=== PATIENT | male | born 2005 | race Caucasian/White ===

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

== ENCOUNTER 2023-07-30 15:06 | Emergency (ER) | payer MEDICAID, SELFPAY ==
[2023-07-30 15:07] VITALS: BP 158/74; PULSE 104; RESP 16; TEMP 36.3; O2SAT 98
--- NOTE | 2023-07-30 15:11 | ED.RN ---
PER PATIENT THIS WILL NOT BE WORKERS COMP
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
--- NOTE | 2023-07-30 15:23 | RAD_ITS ---
STUDY: X-RAY - RIGHT FOOT CLINICAL: Male, 17 years old. Injury TECHNIQUE: 3 view(s) of the foot. COMPARISON: None. FINDINGS: Normal talus, calcaneus, and tarsal bones. Normal visualized subtalar, talonavicular, calcaneocuboid, tarsal and tarsometatarsal articulations. Normal metatarsi. Normal metatarsophalangeal joint of the great toe. Normal tibial and fibular sesamoid bones. Normal interphalangeal joint of the great toe. Nondisplaced fracture at the base of the distal phalanx of the great toe. Normal second through fifth metatarsophalangeal joints. Normal interphalangeal joints and phalanges of the lesser toes. Soft tissue swelling. RAD/Foot min 3 Views IMPRESSION: Soft tissue swelling. Nondisplaced fracture at the base of the distal phalanx of the great toe. Electronically Signed: Héctor Robert MD at 15:39 EDT ,
[2023-07-30] MEDS: Lidocaine 1% (20 ml mdv) 20 ML Vial 3 ML INFILT (15:32)
[2023-07-30] MEDS: Diphth,Pertuss(Acell),Tet Vac 0.5 ML Vial IM (15:32)
[2023-07-30 16:33] VITALS: BP 132/70; PULSE 98; RESP 16; TEMP 36.7; O2SAT 100
== END 2023-07-30 16:35 | disposition home or self-care (01) ==
PROVIDERS: Emergency Provider Emergency Medicine; PCP Pediatrics; Visit Provider Emergency Medicine
DX: S92.414A Nondisplaced fracture of proximal phalanx of right great toe, initial encounter for closed fracture (principal); S91.311A Laceration without foreign body, right foot, initial encounter; W23.2XXA Caught, crushed, jammed or pinched between a moving and stationary object, initial encounter; Y93.89 Activity, other specified; Z23 Encounter for immunization
CPT/HCPCS: 12001; 29515; 73630; 90471; 90715; 99284